=== PATIENT | female | born 1985 | race Caucasian/White ===

== ENCOUNTER 2018-07-02 14:21 | Emergency (ER) | payer BC ==
[~2018-07-02] VITALS: Ht 160 cm; Wt 61.2 kg
--- NOTE | 2018-07-02 14:21 | NUR ---
BIB SISTER, PER SISTER "PT LOSS OF SPEECH, SHE WAN'T ABLE TO TALK" LAST WELL KNOWN 20 MINS AGO. TO ER BED 11, HOOKED TO MONITOR, CHANGED TO GOWN, PROVIDED W WARM BLANKET, AWAITING MD ROBB.
--- NOTE | 2018-07-02 14:28 | NUR ---
CODE STROKE ACTIVATED
--- NOTE | 2018-07-02 14:29 | NUR ---
PLS REFER TO BLUE SHEET (CODE STROKE LOG)
[2018-07-02 14:38] LABS: BASOPHILS % (AUTO) 0.6 % (0.0-2.0); EOSINOPHILS % (AUTO) 2.6 % (0.0-6.0); HEMATOCRIT 40 % (33-45); HEMOGLOBIN 13.5 g/dL (11.5-14.8); LYMPHOCYTES # (AUTO) 2.7 /CMM (0.8-4.8); LYMPHOCYTES % (AUTO) 34.2 % (20.0-44.0); MEAN CORPUSCULAR HGB CONC 33 g/dl (31.0-36.0); MEAN CORPUSCULAR VOLUME 88 fL (82-100); MONOCYTES # (AUTO) 0.4 /CMM (0.1-1.30); MONOCYTES % (AUTO) 5.2 % (2.0-12.0); NEUTROPHILS # (AUTO) 4.5 /CMM (1.8-8.9); NEUTROPHILS % (AUTO) 57.4 % (43.0-81.0); PLATELET COUNT (AUTO) 292 /CMM (150-450); RED BLOOD CELL COUNT(AUTO) 4.58 MIL/uL (4.0-5.2); WHITE BLOOD COUNT (AUTO) 7.8 K/uL (4.3-11.0)
--- NOTE | 2018-07-02 14:47 | NUR ---
ONGOING TELESTROKE W DR REMY VILLALOBOS
[2018-07-02 14:49] LABS: CALCIUM, SERUM 8.5 mg/dL (8.5-10.1); CARBON DIOXIDE 28 mmol/L (21-32); CHLORIDE 103 mmol/L (98-107); CREATININE 0.7 mg/dL (0.6-1.3); GLUCOSE 107 mg/dL (74-106); POTASSIUM 3.7 mmol/L (3.5-5.1); SODIUM SERUM 139 mmol/L (136-145); UREA NITROGEN, BLOOD 10 mg/dL (7-18)
[2018-07-02 14:56] LABS: ALANINE AMINOTRANSFERASE 22 U/L (12-78); ALKALINE PHOSPHATASE 52 U/L (46-116); ASPARTATE AMINOTRANSFERASE 17 U/L (15-37); BILIRUBIN,DIRECT 0.1 mg/dL (0.0-0.2); BILIRUBIN,TOTAL 0.4 mg/dL (0.2-1.0); TOTAL PROTEIN, SERUM 7.3 g/dL (6.4-8.2)
[2018-07-02 14:59] LABS: CHOLESTEROL 188 mg/dL (<200); HDL CHOLESTEROL 68 mg/dL (40-60); LDL 106 mg/dL (0-99); TRIGLYCERIDES 58 mg/dL (30-150)
--- NOTE | 2018-07-02 15:06 | NUR ---
DR RAMIREZ SPEAKING TO DR VILLALOBOS
[2018-07-02 15:09] VITALS: BP 101/63
[2018-07-02] MEDS ORDERED: ASPIRIN 81 MG TAB.CHEW PO ONE (15:30)
--- NOTE | 2018-07-02 15:31 | NUR ---
paged nursing sup for bed
[2018-07-02] MEDS ORDERED: ASPIRIN EC 81 MG TABLET.DR PO ONE (15:36)
[2018-07-02] MEDS ORDERED: LEVO137T24 PO (15:38)
[2018-07-02] MEDS ORDERED: IBUP-23 PO (15:38)
--- NOTE | 2018-07-02 16:00 | NUR ---
`CALLED [facility] AT [address] [facility]IST DOCTOR WAS PAGED.
--- NOTE | 2018-07-02 16:08 | NUR ---
BED RECIEVED 118-1
--- NOTE | 2018-07-02 16:37 | NUR ---
Patient does not wish to proceed with medical care recommended by Dr. CARLA RAMIREZ. Patient given information related to possible complications, up to and including , which could occur as a result of leaving the hospital at this time. Patient verbalizes understanding of risks involved due to leaving against medical advice. Patient has signed AMA form. PT WENT HOME A&Ox4, AMBULATORY W STEADY GAIT, VSS, ACCOMPANIED BY SISTER. NO SIGNS OF NEUROLOGIC DEFICIT.
== END 2018-07-02 16:40 | disposition left against medical advice (07) ==
LOC: ER 14:27
DX: G45.9 Transient cerebral ischemic attack, unspecified (principal); R47.01 Aphasia; R00.1 Bradycardia, unspecified; Z90.89 Acquired absence of other organs; Z60.2 Problems related to living alone
CPT/HCPCS: 36415; 70450-TC; 71045-TC; 80048-TC; 80061-TC; 80076-TC; 82962-TC; 84484-TC; 84702-TC; 85025-TC; 85730-TC; 86850-TC